=== PATIENT | male | born 1985 | race Two or more races ===

== ENCOUNTER 2022-01-31 18:35 | Emergency (ER) | payer MEDICAID ==
[~2022-01-31] VITALS: Ht 147.3 cm; Wt 95.7 kg
[~2022-01-31 18:35] MED LIST: PROM473S5 PO
[2022-01-31 19:09] VITALS: BP 129/76
[2022-01-31] MEDS ORDERED: IBUPROFEN 800 MG TAB PO ONE (20:40)
--- NOTE | 2022-01-31 20:41 | NUR ---
PT TAKEN TO RAD VIA W/C
[2022-01-31] MEDS ORDERED: IBUPROFEN 800 MG TAB ONE (20:42)
--- NOTE | 2022-01-31 21:34 | NUR ---
PER ERMD ORDER PRE-CLAUDE ANKLE SPLINT APPLIED TO PTS RIGHT ANKLE, PT TOLERATED THE SPLINT, +CMS BEFORE AND AFTER
[2022-01-31] MEDS ORDERED: IBUP-2218 PO (21:35)
== END 2022-01-31 21:46 | disposition home or self-care (01) ==
LOC: MED 18:35
DX: S93.401A Sprain of unspecified ligament of right ankle, initial encounter (principal); Z88.0 Allergy status to penicillin; Z79.899 Other long term (current) drug therapy; W18.40XA Slipping, tripping and stumbling without falling, unspecified, initial encounter; Y93.89 Activity, other specified; Y92.89 Other specified places as the place of occurrence of the external cause; Y99.8 Other external cause status
CPT/HCPCS: 73610; 99283

== ENCOUNTER 2023-03-14 18:41 | Emergency (ER) | payer MEDICAID ==
[~2023-03-14] VITALS: Ht 165.1 cm; Wt 95.7 kg
[~2023-03-14 18:41] MED LIST changes: +IBUP-2218 PO
[2023-03-14 18:49] VITALS: BP 131/74; PULSE 69; RESP 20; TEMP 98.8; O2SAT 97
[2023-03-14] MEDS ORDERED: BACITRACIN OINT 500 UNITS/GM PKT TP ONE (18:55)
[2023-03-14] MEDS ORDERED: LIDOCAINE MPF 1% 10 MG/ML VIAL INJ ONE (18:55)
== END 2023-03-14 19:55 | disposition home or self-care (01) ==
LOC: MED 18:41
DX: S01.111A Laceration without foreign body of right eyelid and periocular area, initial encounter (principal); X58.XXXA Exposure to other specified factors, initial encounter; Y93.89 Activity, other specified; Y92.89 Other specified places as the place of occurrence of the external cause; Y99.8 Other external cause status
CPT/HCPCS: 12011; 90471; 90715; 99283; J2001

== ENCOUNTER 2023-03-16 19:13 | Emergency (ER) | payer MEDICAID ==
[~2023-03-16] VITALS: Ht 165.1 cm; Wt 95.7 kg
[2023-03-16 19:45] VITALS: BP 149/82; PULSE 74; RESP 16; TEMP 97.9; O2SAT 95
== END 2023-03-16 20:55 | disposition home or self-care (01) ==
LOC: MED 19:13
DX: S01.81XD Laceration without foreign body of other part of head, subsequent encounter (principal); Z88.0 Allergy status to penicillin; Z79.899 Other long term (current) drug therapy; X58.XXXD Exposure to other specified factors, subsequent encounter
CPT/HCPCS: 99281

== ENCOUNTER 2023-03-22 14:42 | Emergency (ER) | payer MEDICAID ==
[~2023-03-22] VITALS: Ht 165.1 cm; Wt 95.7 kg
[2023-03-22 14:58] VITALS: BP 123/76; PULSE 79; RESP 20; TEMP 97.6; O2SAT 96
[2023-03-22 15:45] VITALS: BP 122/76; PULSE 75; RESP 20; TEMP 98; O2SAT 99
== END 2023-03-22 15:45 | disposition home or self-care (01) ==
LOC: MED 14:42
DX: S01.81XD Laceration without foreign body of other part of head, subsequent encounter (principal); Z48.02 Encounter for removal of sutures; Z79.899 Other long term (current) drug therapy; Z79.1 Long term (current) use of non-steroidal anti-inflammatories (NSAID); Z88.0 Allergy status to penicillin; X58.XXXD Exposure to other specified factors, subsequent encounter
CPT/HCPCS: 99281